=== PATIENT | male | born 1950 | race Caucasian/White ===

== ENCOUNTER 2017-12-12 16:59 | Observation (INO) ==
--- NOTE | 2017-12-12 17:51 | Emergency Department Note ---
Disposition Clinical Impression: Syncope Qualifiers: Syncope type: unspecified Qualified Code(s): R55 - Syncope and collapse Disposition: Admitted As Inpatient Condition: Good Syncope HPI - General Chief Complaint: ED Syncope Stated Complaint: Syncope Time Seen by Provider: 12/12/17 17:21 Source: patient, family Mode of arrival: private vehicle Limitations: no limitations Nursing Notes Reviewed: Yes Vital Signs Reviewed: Yes - History of Present Illness HPI Narrative: 67 yo M c PMHx of HTN, SDH, essential tremor, COPD, DM reports to the ED c/o syncopal event 5 hours ago. Per patient he had a prodrome of palpitations and vision changes(seeing spots), and felt like he was going to pass out. He then came to on the ground. Per him he was fine once he came to. Per his patient did not pass out, patient fell forward onto the car they were looking at with his eyes open the whole time. They lowered him to the ground and he stayed on the ground with mild shaking and his eyes open. insists this was a seizure. She reports he was confused upon coming to and is still not back to baseline per her. He denies loss of bladder control, biting tongue, Headache before or after, numbness or tingling, weakness, Hx of seizure. Patient is being treated for essential tremor by Dr. Patel. He reports he has had episodes for years of palpitations and lightheadedness that preceded his traumatic SDH. He was told by his PCP this was probably just due to too much caffeine. Patient ate breakfast this morning, but hadn't eaten lunch yet when event occurred at 12 :30. They went and got food prior to presenting to ED. Patient not on any blood thinners. Pt Subjective Complaint: loss of consciousness Onset (ago): hour(s) Number of episodes: 1 Duration: minutes(s) (8) Description of Event: post-event confusion Prodromal Symptoms: vision changes, palpitations, heart racing Witnessed: yes - by bystander Context: at rest Injuries Sustained Associated with Event: none Current Symptoms: back to baseline (per patient not by . ) History: none Treatments prior to arrival: none Associated trauma secondary to event: No - Related Data Home Medications Medication Instructions Recorded Confirmed Carbidopa/Levodopa 25/100 [Sinemet 1 each PO TID 12/12/17 12/12/17 25/100] Guanfacine [Tenex] 1 mg PO BID 12/12/17 12/12/17 Lansoprazole [Prevacid] 30 mg PO DAILY 12/12/17 12/12/17 Losartan Potassium [Cozaar] 100 mg PO DAILY 12/12/17 12/12/17 Metformin HCl [Glucophage] 1,000 mg PO BID 12/12/17 12/12/17 Triamterene/HCTZ 75/50mg [Maxzide] 1 tab PO DAILY 12/12/17 12/12/17 Allergies Allergy/AdvReac Type Severity Reaction Status Date / Time Sulfa (Sulfonamide Allergy See Verified 09/02/17 19:50 Antibiotics) Comments Constitutional: Denies: fever, chills Eyes: Reports: vision change. Denies: eye pain ENT ED: Denies: throat pain, congestion Cardiovascular: Reports: palpitations, syncope. Denies: chest pain Respiratory: Denies: cough, dyspnea Gastrointestinal: Denies: abdominal pain, nausea, vomiting, diarrhea Genitourinary: Denies: dysuria, frequency Musculoskeletal: Denies: back pain, neck pain Integumentary: Denies: rash, pruritus Neurological: Denies: headache, weakness, numbness, paresthesias Psychiatric: Denies: anxiety, depression Endocrine: Denies: fatigue, polyuria Hematological/Lymphatic: Denies: easy bleeding, easy bruising Allergic/Immunologic: Denies: facial swelling, itchy eyes Past Medical History - Past Medical History Medical history: Reports: diabetes, hypertension Psychiatric history: Reports: no psych history - Social History Smoking Status: Never smoker Smokeless Tobacco Status: No Alcohol use: Reports: none Physical Exam - General Limitations: no limitations General appearance: alert, in no apparent distress - Head Head exam: atraumatic, normocephalic, other (old SDH evacuation scar) - Eye Eye exam: Present: PERRL, EOMI, other (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 ) - ENT ENT exam: normal oropharynx, mucous membranes moist, other (no signs of biting tongue) - Neck Neck exam: Present: full ROM, trachea midline - Chest Chest inspection: Present: symmetric chest wall rise. Absent: tenderness - Respiratory Respiratory exam: Present: other (poor air movemnt through out. ). Absent: respiratory distress - Cardiovascular Cardiovascular exam: Present: regular rate, normal rhythm, normal heart sounds - Abdominal Exam Abdominal exam: Present: soft, Non-Tender, normal bowel sounds - Extremities Exam Extremities exam: Present: full ROM. Absent: tenderness, pedal edema - Neurological Exam Neurological exam: Present: alert, oriented X3, CN II-XII intact. Absent: motor sensory deficit - Psychiatric Psychiatric exam: Present: normal affect, normal mood - Skin Skin exam: Present: warm, dry Course Course Narrative: Will do Syncope work up EKG, troponin, CBC, BMP, CT head, CXR. - Consultations Consultation #1: Discussed case with Dr. Ramirez admitting hospitalist who agreed to accept the patient for admission. Vital Signs Temperature 98.0 F 12/12/17 17:12 Pulse Rate 81 12/12/17 17:12 Respiratory Rate 16 12/12/17 17:12 Blood Pressure 202/81 12/12/17 17:12 O2 Sat by Pulse Oximetry 96 12/12/17 17:12 Temperature 98.0 F 12/12/17 17:35 Pulse Rate 75 12/12/17 17:35 Respiratory Rate 22 12/12/17 17:35 Blood Pressure 181/94 12/12/17 17:35 O2 Sat by Pulse Oximetry 95 12/12/17 17:35 Oxygen Delivery Oxygen Delivery Room Air Syncope - MDM Narrative Medical decision making narrative: Episode concerning for possible seizure. Will work up for neurologic and cardiac causes of syncope. Normal labs, CT head, CXR. Will need admission for syncope vs Seizure work up. - Lab Data Lab results reviewed: Yes I reviewed the patient's lab results. Result diagrams: 12/12/17 17:53 12/12/17 17:53 Lab Results 12/12/17 12/12/17 Range/Units 17:53 17:53 WBC 7.7 (4.3-11.1) K/mcL RBC 4.08 L (4.19-5.50) M/mcL Hgb 12.6 L (12.9-16.9) g/dL Hct 36.0 L (37.5-50.1) % MCV 88.2 (83.0-100.0) fL MCH 30.9 (28.0-33.3) pg MCHC 35.0 (31.6-35.5) g/dL RDW 12.8 (11.5-14.5) % Plt Count 292 (140-400) K/mcL MPV 9.6 (9.4-12.4) fL Immature Gran % 0.5 (0-4) % Seg Neutrophils % 65.0 % Lymphocytes % 25.2 % Monocytes % 6.9 % Eosinophils % 1.6 % Basophils % 0.8 % Neutrophils # 5.0 (1.6-8.9) K/mcL Lymphocytes # 1.9 (0.6-4.6) K/mcL Monocytes # 0.5 (0.0-1.3) K/mcL Eosinophils # 0.1 (0.0-0.6) K/mcL Basophils # 0.1 (0.0-0.2) K/mcL Sodium 136 (136-145) mEq/L Potassium 3.5 (3.5-5.1) mEq/L Chloride 99 (98-107) mEq/L Carbon Dioxide 28 (23-29) mEq/L BUN 29 H (8-23) mg/dL Creatinine 1.47 H (0.70-1.30) mg/dL Est GFR ( Amer) 58 L (> 60) Est GFR (Non-Af Amer) 48 L (> 60) BUN/Creatinine Ratio 20 (6-26) Glucose 186 H (70-105) mg/dL Calculated Osmolality 293 (280-300) Calcium 9.2 (8.6-10.3) mg/dL Troponin I < 0.03 (< 0.04) ng/mL - Radiology Data Radiology results reviewed: Yes I reviewed the patient's radiology results. - EKG Data EKG attestation: Yes I reviewed and interpreted this EKG. EKG results narrative: EKG 12/12/17, 17:36 Sinus rhythm with sinus arrhythmia, old possible inferior Q waves in II AVF, V6, Rate 75, MS 188, QRS 127, QT/QTc 396/425, NO ST segment changes. No change from prior EKG of 01/19/15.
[2017-12-12 18:03] LABS: Basophils # 0.1 K/mcL (0.0-0.2); Basophils % 0.8 %; Eosinophils # 0.1 K/mcL (0.0-0.6); Eosinophils % 1.6 %; Hemoglobin 12.6 g/dL (12.9-16.9); Immature Granulocytes % 0.5 % (0-4); Lymphocytes # 1.9 K/mcL (0.6-4.6); Lymphocytes % 25.2 %; Mean Corpuscular Hemoglobin 30.9 pg (28.0-33.3); Mean Corpuscular Volume 88.2 fL (83.0-100.0); Mean Platelet Volume 9.6 fL (9.4-12.4); Monocytes # 0.5 K/mcL (0.0-1.3); Monocytes % 6.9 %; Platelet Count 292 K/mcL (140-400); Red Blood Count 4.08 M/mcL (4.19-5.50); Red Cell Distribution Width 12.8 % (11.5-14.5)
[2017-12-12 18:25] LABS: BUN/Creatinine Ratio 20 (6-26); Blood Urea Nitrogen 29 mg/dL (8-23); Calcium 9.2 mg/dL (8.6-10.3); Carbon Dioxide 28 mEq/L (23-29); Chloride 99 mEq/L (98-107); Glucose 186 mg/dL (70-105); Osmolality,Calculated 293 (280-300); Potassium 3.5 mEq/L (3.5-5.1); Sodium 136 mEq/L (136-145); Troponin I < 0.03 ng/mL (< 0.04); eGFR For African Americans 58 (> 60); eGFR For Non-African Americans 48 (> 60)
--- NOTE | 2017-12-12 20:49 | Emergency Department Note ---
Disposition Clinical Impression: Syncope Qualifiers: Syncope type: unspecified Qualified Code(s): R55 - Syncope and collapse Disposition: Admitted As Inpatient Condition: Good Referrals: Moses Correia DO [Primary Care Provider] - Dizziness HPI - General Chief Complaint: ED Syncope Stated Complaint: Syncope Time Seen by Provider: 12/12/17 17:21 Source: patient, family Mode of arrival: private vehicle Limitations: no limitations Nursing Notes Reviewed: Yes Vital Signs Reviewed: Yes - Related Data Home Medications Medication Instructions Recorded Confirmed Carbidopa/Levodopa 25/100 [Sinemet 1 each PO TID 12/12/17 12/12/17 25/100] Guanfacine [Tenex] 1 mg PO BID 12/12/17 12/12/17 Lansoprazole [Prevacid] 30 mg PO DAILY 12/12/17 12/12/17 Losartan Potassium [Cozaar] 100 mg PO DAILY 12/12/17 12/12/17 Metformin HCl [Glucophage] 1,000 mg PO BID 12/12/17 12/12/17 Triamterene/HCTZ 75/50mg [Maxzide] 1 tab PO DAILY 12/12/17 12/12/17 Allergies Allergy/AdvReac Type Severity Reaction Status Date / Time Sulfa (Sulfonamide Allergy See Verified 09/02/17 19:50 Antibiotics) Comments Constitutional: Denies: fever, chills Eyes: Reports: vision change. Denies: eye pain ENT ED: Denies: throat pain, congestion Cardiovascular: Reports: palpitations, syncope. Denies: chest pain Respiratory: Denies: cough, dyspnea Gastrointestinal: Denies: abdominal pain, nausea, vomiting, diarrhea Genitourinary: Denies: dysuria, frequency Musculoskeletal: Denies: back pain, neck pain Integumentary: Denies: rash, pruritus Neurological: Denies: headache, weakness, numbness, paresthesias Psychiatric: Denies: anxiety, depression Endocrine: Denies: fatigue, polyuria Hematological/Lymphatic: Denies: easy bleeding, easy bruising Allergic/Immunologic: Denies: facial swelling, itchy eyes Past Medical History - Past Medical History Medical history: Reports: diabetes, hypertension Psychiatric history: Reports: no psych history - Social History Smoking Status: Never smoker Smokeless Tobacco Status: No Alcohol use: Reports: none Drug use: Reports: none Physical Exam - General Limitations: no limitations General appearance: alert, in no apparent distress Course Vital Signs Temperature 98.0 F 12/12/17 17:12 Pulse Rate 81 12/12/17 17:12 Respiratory Rate 16 12/12/17 17:12 Blood Pressure 202/81 12/12/17 17:12 O2 Sat by Pulse Oximetry 96 12/12/17 17:12 Temperature 98.0 F 12/12/17 17:35 Pulse Rate 75 12/12/17 17:35 Respiratory Rate 22 12/12/17 17:35 Blood Pressure 181/94 12/12/17 17:35 O2 Sat by Pulse Oximetry 95 12/12/17 17:35 Oxygen Delivery Oxygen Delivery Room Air Dizziness - Lab Data Result diagrams: 12/12/17 17:53 12/12/17 17:53 Lab Results 12/12/17 12/12/17 Range/Units 17:53 17:53 WBC 7.7 (4.3-11.1) K/mcL RBC 4.08 L (4.19-5.50) M/mcL Hgb 12.6 L (12.9-16.9) g/dL Hct 36.0 L (37.5-50.1) % MCV 88.2 (83.0-100.0) fL MCH 30.9 (28.0-33.3) pg MCHC 35.0 (31.6-35.5) g/dL RDW 12.8 (11.5-14.5) % Plt Count 292 (140-400) K/mcL MPV 9.6 (9.4-12.4) fL Immature Gran % 0.5 (0-4) % Seg Neutrophils % 65.0 % Lymphocytes % 25.2 % Monocytes % 6.9 % Eosinophils % 1.6 % Basophils % 0.8 % Neutrophils # 5.0 (1.6-8.9) K/mcL Lymphocytes # 1.9 (0.6-4.6) K/mcL Monocytes # 0.5 (0.0-1.3) K/mcL Eosinophils # 0.1 (0.0-0.6) K/mcL Basophils # 0.1 (0.0-0.2) K/mcL Sodium 136 (136-145) mEq/L Potassium 3.5 (3.5-5.1) mEq/L Chloride 99 (98-107) mEq/L Carbon Dioxide 28 (23-29) mEq/L BUN 29 H (8-23) mg/dL Creatinine 1.47 H (0.70-1.30) mg/dL Est GFR ( Amer) 58 L (> 60) Est GFR (Non-Af Amer) 48 L (> 60) BUN/Creatinine Ratio 20 (6-26) Glucose 186 H (70-105) mg/dL Calculated Osmolality 293 (280-300) Calcium 9.2 (8.6-10.3) mg/dL Troponin I < 0.03 (< 0.04) ng/mL Attestation Statement - Attestation Attestation: I, Warren Gerber, examined this patient and my medical decision-making was reviewed with the FL[employer]ICATIONS OFFICER/PA/Advanced Practice Nurse/Resident Physician. I agree with the documented findings, disposition and treatment plan as described except to the extent set forth below. 67-year-old male presents emergency Department with concerns of syncopal event versus seizure. Patient states he was walking out to a car when he suddenly lost consciousness. states that he stopped talking was about to fall forward, she caught him and so he did not hit his head. states he never close his eyes during this encounter although he was unable to respond. states it took about 8 minutes for him to return to normal. states that after the initial period of unresponsiveness, he became very agitated. No history of seizures in the past. No history of previous syncope. Patient has a history of tremors which are being followed by Dr. Patel and was recently started on Sinemet within the past 1-2 months. Last change in dosing was 3 weeks ago. Patient states he felt the symptoms approaching with palpitations and lightheadedness although he denies chest pain or shortness of breath. No history of previous PE. Patient denies recent fever, chills, nausea, vomiting, diarrhea, bowel movement before the event or other stressors. EKG did not show evidence of dysrhythmia or STEMI. Initial troponin negative. Patient feels comfortable with plan for admission to the hospital for further care and evaluation.
--- NOTE | 2017-12-12 21:46 | Internal Med History&Physical ---
Date of Encounter: 12/12/17 Time of Encounter: 21:00 Internal Medicine - H&P: HPI Chief complaint: Possible seizure Admitted From: Emergency Dept Plans for Post Hospital Care: Home History of present illness: Mr. Su is a 67 year old male patient with a history of prior subdural hematoma status post evacuation 3 years back and chronic tremor in right upper extremity, hypertension, diabetes presented to the ER after an episode of possible seizure at home. According to his who witnessed the episode, patient was standing up and suddenly fell forwards with his eyes open. He did not seem to lose consciousness. He did not have any tonic-clonic movements or bowel or bladder incontinence. No tongue biting. However he was not responding to her questions. This episode lasted for about 8 minutes and patient is then began to move but remained confused for the next hour. He has never had seizures before. He did not hit his head. He now states that he felt it coming on just prior to his episode with blurring vision and dark spots in his visual amaya along with dizziness. Denies any palpitations. Only recent medication change has been an increase in his metformin dosage. He does not usually check his blood sugars. No fever or chills. He does have cough. No chest pain or palpitations. He now feels that he is back to his baseline. No focal weakness or numbness. Past Med Surg Social Fam HX - Past Medical History Medical history: diabetes, hypertension Additional medical history: subdermal hematoma Psychiatric history: no psych history - Past Surgical History Additional surgical history: brain surgery 2014 - Social History Smoking Status: Never smoker Smokeless Tobacco Status: No Alcohol use: none Drug use: none - Additional Family History Additional family history: Reviewed and found to be noncontributory at this time Internal Medicine - H&P: Meds Carbidopa/Levodopa 25/100 [Sinemet 25/100] 1 each PO TID 12/12/17 [History] Guanfacine [Tenex] 1 mg PO BID 12/12/17 [History] Lansoprazole [Prevacid] 30 mg PO DAILY 12/12/17 [History] Losartan Potassium [Cozaar] 100 mg PO DAILY 12/12/17 [History] Metformin HCl [Glucophage] 1,000 mg PO BID 12/12/17 [History] Triamterene/HCTZ 75/50mg [Maxzide] 1 tab PO DAILY 12/12/17 [History] 3 Allergy/AdvReac Type Severity Reaction Status Date / Time Sulfa (Sulfonamide Allergy See Verified 09/02/17 19:50 Antibiotics) Comments All Systems PM: A 10-system review of systems was performed and is negative for pertinent findings except as documented above in the HPI. - Constitutional Constitutional: no chills, no fever(s), no night sweats - EENT Eyes: spots in vision, no change in vision, no discharge, no pain, no photophobia Ears: no ear discharge, no ear pain, no tinnitus Nose, mouth and throat: no dysphagia, no nasal discharge, no neck pain, no sore throat - Cardiovascular Cardiovascular ROS IM: lightheadedness, no chest pain, no diaphoresis, no dyspnea, no palpitations, no syncope - Respiratory Respiratory: no cough, no dyspnea, no wheezing, no excessive phlegm production - Gastrointestinal Gastrointestinal: no abdominal pain, no diarrhea, no hematemesis, no hematochezia, no melena, no nausea, no vomiting - Musculoskeletal Musculoskeletal ROS IM: no numbness, no tingling - Integumentary Integumentary IM: no rash, no unusual bruising - Neurological Neurological ROS: dizziness, weakness, no confusion, no convulsions, no focal weakness, no numbness, no tingling, no tremor(s) - Hematologic/Lymphatic Hematologic/Lymphatic: no easy bruising - Constitutional Vitals: Temp Pulse Resp BP Pulse Ox 98.0 F 73 22 149/87 95 12/12/17 17:35 12/12/17 21:22 12/12/17 17:35 12/12/17 21:22 12/12/17 17:35 General appearance: Present: A&O X 3, pleasant, answers questions appropriately - Eye Eye exam: Present: EOMI, conjuntiva pink, sclera anicteric - Neck Neck exam general surgery: Present: supple, trachea midline. Absent: lymphadenopathy - Respiratory Respiratory exam: Present: CTAB. Absent: accessory muscle use, rales, rhonchi, wheezes - Cardiovascular Cardiovascular exam: Present: RRR, +S1, +S2. Absent: diastolic murmur, gallop, rubs, systolic murmur - Extremities Exam Extremities exam: Present: warm, radial pulses palpable and symmetrical. Absent : calf tenderness, cyanotic, pedal edema Additional comments: Resting tremor in right upper extremity - Neurological Exam Neurological exam: Present: alert, CN II-XII intact, oriented X3, no focal deficits. Absent: pronater drift, facial droop, speech deficit - Skin Skin exam: Present: dry, intact Internal Med - H&P Results - Labs CBC & Chem 7: 12/12/17 17:53 12/12/17 17:53 - Assessment and plan (1) Postural dizziness with presyncope Current Visit: Yes Status: Acute Assessment and plan: Patient presented falling episode of dizziness and presyncope. No loss of consciousness but did not respond for at least 8 minutes. Seizure is a possibility but he did not have any tonic-clonic activity and no prior history of seizures. We will check orthostatic blood pressures, get MRI of the brain and EEG. Fall precautions. Monitor with telemetry. (2) Essential hypertension Current Visit: Yes Status: Chronic Assessment and plan: Blood pressure is currently elevated. We will monitor and treat accordingly. Hold Maxzide due to acute kidney injury. (3) Diabetes mellitus, type 2 Current Visit: Yes Status: Chronic Assessment and plan: Patient takes metformin at home. We will place him on insulin sliding scale year. Diabetic diet. Qualifiers: Diabetes mellitus senior care insulin use: without long term care pharmacist use Diabetes mellitus complication status: without complication Qualified Code(s): E11.9 - Type 2 diabetes mellitus without complications (4) Acute kidney injury Current Visit: Yes Status: Acute Assessment and plan: Patient has elevated BUN and creatinine. Could be related to dehydration. We will gently hydrate and follow renal function closely. Hold Maxzide and Cozaar for now. (5) DVT prophylaxis Current Visit: Yes Status: Acute Assessment and plan: With subcutaneous heparin - Time Spent With Patient Total time spent is greater than 50% in coordination of care (as documented) at patient's floor/unit and/or counseling patient:
[2017-12-12] MEDS ORDERED: Naloxone 0.4 MG/ML INJ IVP PRN (21:59)
[2017-12-12] MEDS ORDERED: D5% in Water 1,000 ML IVC PRN (22:00)
[2017-12-12] MEDS ORDERED: *HR* Dextrose 50 % in Water (Syg) 50 ML SYRINGE IVP PRN (22:00)
[2017-12-12] MEDS ORDERED: Dextrose Gel 15 GM/37.5 ML TUBE PO PRN ×2 (22:00)
[2017-12-12] MEDS ORDERED: Ringers Solution, Lactated 1,000 ML IVC SCH (22:15)
[2017-12-13] MEDS ORDERED: *HR* Heparin 5,000 UNIT/ML VIAL SQ SCH (06:00)
[2017-12-13 06:54] LABS: Basophils # 0.1 K/mcL (0.0-0.2); Basophils % 0.9 %; Eosinophils # 0.1 K/mcL (0.0-0.6); Hemoglobin 12.4 g/dL (12.9-16.9); Immature Granulocytes % 0.3 % (0-4); Lymphocytes # 1.7 K/mcL (0.6-4.6); Lymphocytes % 25.1 %; Mean Corpuscular HGB Conc 35.4 g/dL (31.6-35.5); Mean Corpuscular Hemoglobin 31.1 pg (28.0-33.3); Mean Corpuscular Volume 87.7 fL (83.0-100.0); Monocytes # 0.6 K/mcL (0.0-1.3); Monocytes % 8.5 %; Neutrophils # 4.2 K/mcL (1.6-8.9); Platelet Count 272 K/mcL (140-400); Red Blood Count 3.99 M/mcL (4.19-5.50); Red Cell Distribution Width 12.7 % (11.5-14.5); Segmented Neutrophils % 63.2 %
[2017-12-13 07:17] LABS: BUN/Creatinine Ratio 23 (6-26); Blood Urea Nitrogen 29 mg/dL (8-23); Calcium 9.1 mg/dL (8.6-10.3); Carbon Dioxide 28 mEq/L (23-29); Chloride 101 mEq/L (98-107); Glucose 207 mg/dL (70-105); Osmolality,Calculated 298 (280-300); Potassium 3.2 mEq/L (3.5-5.1); Sodium 138 mEq/L (136-145); eGFR For African Americans > 60 (> 60); eGFR For Non-African Americans 59 (> 60)
[2017-12-13] MEDS: Insulin LISPRO 300 UNITS/3 ML VIAL SQ SCH ×2 (08:44→12:24)
[2017-12-13] MEDS: Carbidopa/Levodopa 25/100 TABLET PO SCH ×2 (08:44→14:30)
--- NOTE | 2017-12-13 13:31 | Neurology - Consult Note ---
Date of Encounter: 12/13/17 Time of Encounter: 13:29 Assessment and Plan (1) Syncope Current Visit: Yes Status: Acute I believe that more than likely this patient has experienced vasovagal syncope. Generally with vasovagal syncope there is a brief prodrome prior to losing consciousness or altered consciousness. He stated that he felt strange and was coming on. He felt flushed. He was unconscious only briefly. There is a question actually as to whether not he was unconscious at all. He denies any anxiety associated. He did not experience any convulsive activity did not lose bladder or bowel continence over likely not dealing with seizure. Orthostatic blood pressure readings were negative. At this juncture I feel that the EEG study can be canceled. I am doubtful of cardiogenic syncope again because the prodrome that he experienced was consistent with a vasovagal event. MRI scan of the brain does not reveal any evidence of any acute event. It does show evidence of the previous craniotomy for the subdural hematoma, and it also shows some evidence of cortical atrophy with compensatory ventricular dilatation. Carotid Doppler study does reveal mild to moderate stenosis of the right internal carotid artery, however this event was not consistent with a TIA. From a neurologic perspective he is stable. I will reevaluate him at your request. Qualifiers: Syncope type: vasovagal syncope Qualified Code(s): R55 - Syncope and collapse History of Present Illness HPI: Mr. Su is a 67 year old male who was known to me due to a history of tremor and is now seen for neurologic consultation as an inpatient due to an acute episode of altered consciousness. He stated at that time was about 2:00 to 2: 30 in the afternoon. He and his granddaughter were car dealership looking for her car. He states that he stood up in one to look into the car and he felt lightheaded. He states that he "felt it coming on". Apparently he felt faint. He denied feeling nauseated. Denied any chest pain. He has experienced episodes of this nature previously. Apparently he went down to the ground with the assistance of others would have been witnessing this event. He did not fall abruptly he did not injure himself. There was no generalized tonic-clonic activity. He did not lose bladder or bowel continence. Apparently he was confused for about 8 minutes or so. Currently he is back to his normal baseline. Seen in the office for tremors. He has a resting as well as intention tremor of the right upper extremity. He has been tried on and failed primidone and Topamax. More recently he has been taking Sinemet 25/100 twice a day and he feels that it is helping. Past Med Surg Social Fam HX - Past Medical History Medical history: diabetes, hypertension Additional medical history: subdermal hematoma Psychiatric history: no psych history - Past Surgical History Additional surgical history: brain surgery 2015 - Social History Smoking Status: Never smoker Smokeless Tobacco Status: No Alcohol use: none Drug use: none Medications and Allergies Carbidopa/Levodopa 25/100 [Sinemet 25/100] 1 each PO TID 12/12/17 [History] Guanfacine [Tenex] 1 mg PO BID 12/12/17 [History] Lansoprazole [Prevacid] 30 mg PO DAILY 12/12/17 [History] Losartan Potassium [Cozaar] 100 mg PO DAILY 12/12/17 [History] Metformin HCl [Glucophage] 1,000 mg PO BID 12/12/17 [History] Triamterene/HCTZ 75/50mg [Maxzide] 1 tab PO DAILY 12/12/17 [History] 3 Allergy/AdvReac Type Severity Reaction Status Date / Time Sulfa (Sulfonamide Allergy See Verified 09/02/17 19:50 Antibiotics) Comments All Systems: The remainder of the systems were reviewed and are negative Review of Systems: The balance of the systems review is negative. Physical Examination - Vital Signs Vital Signs: Initial Vital Signs Temp Pulse Resp BP Pulse Ox 98.0 F 81 16 202/81 96 12/12/17 17:12 12/12/17 17:12 12/12/17 17:12 12/12/17 17:12 12/12/17 17:12 - Neurologic Sensorimotor examination: intact Detailed motor examination: grossly full strength in all extremities, other (He does have a resting tremor of the right upper extremity. He has intention tremor of both upper extremities upon finger-nose testing. He does have Dupuytren's contractures bilaterally.) Detailed sensory examination: intact Reflex and gait examination: intact Mental Status Examination: awake, alert, oriented to person, oriented to place, oriented to time, follows commands appropriately, answers questions appropriately, no agnosia, no aphasia, no aproxia Cranial nerve examination: PERRL, EOMI (Dysconjugate gaze is present.), visual amaya intact, corneal reflexes brisk symmetrically, sensory to face intact, mastication intact, no facial asymmetry is present, no dysarthria, hearing is intact symmetrically, soft palate elevates bilaterally upon phonation, gag reflex intact, flexes SCM and trapezius muscles symmetrically with full power, tongue protrudes midline, no atrophy or facial fasiculations present Cerebellar examination: no dysmetria, performs finger to nose and heel to mcghee symmetrically without ataxia (Intention tremor is present however bilaterally.) Results - Laboratory Findings CBC and BMP: 12/13/17 05:47 12/13/17 05:47 Abnormal lab findings: Abnormal lab results RBC 3.99 M/mcL (4.19-5.50) L 12/13/17 05:47 Hgb 12.4 g/dL (12.9-16.9) L 12/13/17 05:47 Hct 35.0 % (37.5-50.1) L 12/13/17 05:47 Potassium 3.2 mEq/L (3.5-5.1) L 12/13/17 05:47 BUN 29 mg/dL (8-23) H 12/13/17 05:47 Est GFR (Non-Af Amer) 59 (> 60) L 12/13/17 05:47 Glucose 207 mg/dL (70-105) H 12/13/17 05:47 POC Glucose 182 mg/dL (70-99) H 12/12/17 23:04 Consult Discharge Plan - Plan Referrals: Moses Correia DO [Primary Care Provider] -
[2017-12-13] MEDS ORDERED: Ibuprofen 600 MG TABLET PO PRN (14:42)
--- NOTE | 2017-12-13 16:14 | Discharge Summary ---
- NOTES TO OUTPATIENT PROVIDER Notes to Outpatient Provider: Mr. Su, was admitted to the hospital due to a near syncopal versus possible syncopal event. The patient reports he was standing and talking to his friend and began to feel weak, and a flush and overall strange. He reports his eyes were open the entire time and is not clear whether or not he was unconscious at all. Orthostatic blood pressures negative, MRI and CT of head negative. Total for that this was cardiogenic shock as prodrome is consistent with vasovagal event. He was instructed to follow-up with PCP within 1 week of discharge. The patient may benefit from outpatient tilt table testing and/or loop recorder Orders not resulted at time of discharge: Pending orders 12/14/17 04:00 Basic Metabolic Panel AM 0400 Complete Blood Count [HEME] AM 0400 12/15/17 04:00 Basic Metabolic Panel AM 0400 Complete Blood Count [HEME] AM 0400 12/16/17 04:00 Basic Metabolic Panel AM 0400 Complete Blood Count [HEME] AM 0400 12/17/17 04:00 Basic Metabolic Panel AM 0400 Complete Blood Count [HEME] AM 0400 12/18/17 04:00 Basic Metabolic Panel AM 0400 Complete Blood Count [HEME] AM 0400 Date of Encounter: 12/13/17 Time of Encounter: 16:11 - Discharge Diagnosis (1) Postural dizziness with presyncope Priority: Primary Status: Acute Assessment and Plan: Patient presented falling episode of dizziness and presyncope. Unclear as to whether or not he had a true loss of consciousness. Had a prodrome of symptoms consistent with vasovagal event. CT head, MRI head negative for acute intracranial abnormality. It does however show history of previous craniotomy for subdural hematoma, evidence of cortical atrophy with compensatory ventricular dilatation. Doppler study completed revealing mild to moderate stenosis of the right ICA. TTE unremarkable. Neurology consulted and does not feel this was CVA/TIA or seizure. No need for EEG at this time. Has not had recurrence of symptoms since admission. Improved with IV hydration. May have been dehydrated. Patient has been instructed to wear compression stockings at all times, consume adequate oral intake, and a follow-up with PCP within 1 week of discharge. Additionally, he may benefit from outpatient tilt table testing. He is instructed to return to the ED showed near syncopal symptoms return. (2) Essential hypertension Priority: Secondary Status: Chronic Assessment and Plan: Pressure mildly elevated, but patient has not been receiving diuretic due to acute kidney injury and concerns for dehydration leading to near syncopal event. Resume home anti-HTN medications at discharge (3) Diabetes mellitus, type 2 Priority: Secondary Status: Chronic Assessment and Plan: Resume home oral hypoglycemic agents Qualifiers: Diabetes mellitus termite control service representative insulin use: without correction use Diabetes mellitus complication status: without complication Qualified Code(s): E11.9 - Type 2 diabetes mellitus without complications (4) Acute kidney injury Priority: Secondary Status: Acute Assessment and Plan: BUN and creatinine improved with hydration No prior history of renal failure (5) DVT prophylaxis Priority: Secondary Status: Acute Hospital course: Mr. Su is a 67 year old male See assessment and plan for hospital course Discharge discussed with: patient, family, nurse, revenue cycle consultant - Time Spent with Patient Total time spent providing and/or coordinating discharge services: Less than 30 minutes - Discharge Medications Home Medications: Carbidopa/Levodopa 25/100 [Sinemet 25/100] 1 each PO TID 12/12/17 [History] Guanfacine [Tenex] 1 mg PO BID 12/12/17 [History] Lansoprazole [Prevacid] 30 mg PO DAILY 12/12/17 [History] Losartan Potassium [Cozaar] 100 mg PO DAILY 12/12/17 [History] Metformin HCl [Glucophage] 1,000 mg PO BID 12/12/17 [History] Triamterene/HCTZ 75/50mg [Maxzide] 1 tab PO DAILY 12/12/17 [History] Allergies/Adverse Reactions: 3 Allergy/AdvReac Type Severity Reaction Status Date / Time Sulfa (Sulfonamide Allergy See Verified 09/02/17 19:50 Antibiotics) Comments Date of admission: 12/12/17 20:21 Primary care physician: Moses Correia Discharging clinician: Lenard Diego Anticipated date of discharge: 12/13/17 - Constitutional Vitals: Temp Pulse Resp BP Pulse Ox 98.0 F 66 18 162/87 96 12/13/17 12:18 12/13/17 12:18 12/13/17 12:18 12/13/17 12:18 12/13/17 12:18 General appearance: Present: A&O X 3, pleasant, answers questions appropriately - Head Head exam: Present: atraumatic, normocephalic - Eye Eye exam: Present: PERRL, conjuntiva pink, sclera anicteric Pupils: Present: PERRL - Neck Neck exam general surgery: Present: supple, trachea midline. Absent: lymphadenopathy - Respiratory Respiratory exam: Present: CTAB. Absent: accessory muscle use, rales, rhonchi, wheezes - Cardiovascular Cardiovascular exam: Present: RRR, +S1, +S2. Absent: diastolic murmur, gallop, rubs, systolic murmur - GI/Abdominal GI/Abdominal exam: Present: normal bowel sounds, soft, no peritoneal signs. Absent: distended, tenderness - Extremities Exam Extremities exam: Present: warm, radial pulses palpable and symmetrical. Absent : calf tenderness, cyanotic, pedal edema - Neurological Exam Neurological exam: Present: CN II-XII intact, oriented X3, no focal deficits. Absent: pronater drift, facial droop, speech deficit - Skin Skin exam: Present: dry, intact - Patient Status Disposition: Home, Self-Care Condition: Good - Discharge Instructions Follow Up With: Moses Correia DO [Primary Care Provider] - - Diet and Activity Activity: increase activity as tolerated Diet: advance to your usual diet
[2017-12-13 16:28] VITALS: BP 159/85
[2017-12-13] MEDS ORDERED: Insulin LISPRO 300 UNITS/3 ML VIAL SQ SCH (21:00)
--- NOTE | 2017-12-15 16:35 | Electrocardiograph Report ---
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
== END 2017-12-13 16:52 | disposition home or self-care (01) ==
LOC: 3BNU 16:59 → EMEROO 16:59 → 3BNU 21:24
PROVIDERS: ADMIT Internal Medicine; ATTEND Internal Medicine

== ENCOUNTER 2019-10-11 21:03 | Observation (INO) ==
[2019-10-11 21:34] LABS: Bilirubin,Urine Negative (Negative); Blood,Urine Negative (Negative); Clarity,Urine Clear (Clear); Color,Urine Yellow (Yellow); Glucose,Urine (UA) Normal (Normal); Ketones,Urine Negative (Negative); Leukocyte Esterase,Urine Negative (Negative); Nitrite,Urine Negative (Negative); PH,Urine 7.5 pH Units (5.0-8.0); Protein,Urine 100 mg/dL (Neg-Trace); Specific Gravity,Urine 1.016 (1.010-1.025); Urobilinogen,Urine Normal (Normal)
[2019-10-11 21:35] LABS: Basophils # 0.1 K/mcL (0.0-0.2); Basophils % 0.9 %; Eosinophils # 0.2 K/mcL (0.0-0.6); Eosinophils % 2.2 %; Hematocrit 41.9 % (37.5-50.1); Hemoglobin 14.3 g/dL (12.9-16.9); Immature Granulocytes % 0.3 % (0-4); Lymphocytes # 2.6 K/mcL (0.6-4.6); Lymphocytes % 28.8 %; Mean Corpuscular HGB Conc 34.1 g/dL (31.6-35.5); Mean Platelet Volume 9.1 fL (9.4-12.4); Monocytes # 0.7 K/mcL (0.0-1.3); Monocytes % 7.8 %; Neutrophils # 5.5 K/mcL (1.6-8.9); Platelet Count 338 K/mcL (140-400); Red Blood Count 4.76 M/mcL (4.19-5.50); Red Cell Distribution Width 13.1 % (11.5-14.5); White Blood Count 9.1 K/mcL (4.3-11.1)
[2019-10-11 21:36] LABS: Bacteria,Urine None Seen per hpf (None-Few); Hyaline Casts,Urine None Seen per lpf (None-Few); RBC,Urine 0-3 per hpf (0-3); Squamous Epithelial Cell,Urine Few per lpf (None-Few); WBC,Urine 0-3 per hpf (0-3)
[2019-10-11 21:56] LABS: Alanine Aminotransferase 8 Units/L (7-52); Albumin 4.1 g/dL (3.5-5.7); Albumin/Globulin Ratio 1.5 (1.1-2.2); Alkaline Phosphatase 108 Units/L (34-104); Aspartate Amino Transferase 12 Units/L (13-39); BUN/Creatinine Ratio 21 (6-26); Bilirubin,Total 0.3 mg/dL (0.3-1.0); Blood Urea Nitrogen 19 mg/dL (8-23); Calcium 9.2 mg/dL (8.6-10.3); Carbon Dioxide 28 mEq/L (23-29); Chloride 101 mEq/L (98-107); Globulin 2.8 g/dL (2.4-3.5); Glucose 134 mg/dL (70-105); Osmolality,Calculated 294 (280-300); Potassium 3.1 mEq/L (3.5-5.1); Sodium 140 mEq/L (136-145); Total Protein 6.9 g/dL (6.4-8.9); eGFR For African Americans > 60 (> 60); eGFR For Non-African Americans > 60 (> 60)
[2019-10-11 21:57] LABS: Troponin I < 0.03 ng/mL (< 0.04)
[2019-10-11 21:58] LABS: Activated Partial Thrombo Time 36.8 Seconds (26.0-36.0); Prothrombin Time 10.9 Seconds (9.4-12.1)
[2019-10-11] MEDS: Isovue-370 500 ML BOTTLE IVP ONE (22:34)
[2019-10-11] MEDS ORDERED: diazePAM 5 MG TABLET PO ONE (22:42)
[2019-10-12] MEDS ORDERED: Naloxone 0.4 MG/ML INJ IVP PRN (01:11)
[2019-10-12] MEDS ORDERED: Ondansetron 4 MG/2 ML VIAL IVP PRN (01:11)
[2019-10-12] MEDS ORDERED: D5% in Water 1,000 ML IVC PRN (01:25)
[2019-10-12] MEDS ORDERED: *HR* Dextrose 50 % in Water (Syg) 50 ML SYRINGE IVP PRN (01:25)
[2019-10-12] MEDS ORDERED: Dextrose Gel 15 GM/37.5 ML TUBE PO PRN ×2 (01:25)
[2019-10-12] MEDS: carvediloL 25 MG TABLET PO SCH ×3 (01:26→17:41)
[2019-10-12] MEDS: Insulin LISPRO 300 UNITS/3 ML VIAL SQ SCH ×5 (01:28→20:38)
[2019-10-12] MEDS ORDERED: carvediloL 25 MG TABLET PO SCH (01:30)
[2019-10-12] MEDS ORDERED: Insulin LISPRO 300 UNITS/3 ML VIAL SQ SCH (01:30)
[2019-10-12] MEDS ORDERED: polyethylene glycoL 3350 17 GM POWD.PACK PO PRN (01:37)
[2019-10-12 02:28] LABS: Prothrombin Time 11.5 Seconds (9.4-12.1)
[2019-10-12 02:44] LABS: BUN/Creatinine Ratio 19 (6-26); Blood Urea Nitrogen 16 mg/dL (8-23); Calcium 8.8 mg/dL (8.6-10.3); Carbon Dioxide 28 mEq/L (23-29); Chloride 101 mEq/L (98-107); Glucose 124 mg/dL (70-105); Magnesium 1.6 mg/dL (1.6-2.6); Osmolality,Calculated 289 (280-300); Potassium 3.5 mEq/L (3.5-5.1); Sodium 138 mEq/L (136-145); eGFR For African Americans > 60 (> 60); eGFR For Non-African Americans > 60 (> 60)
[2019-10-12 02:50] LABS: Basophils # 0.1 K/mcL (0.0-0.2); Eosinophils # 0.1 K/mcL (0.0-0.6); Eosinophils % 1.5 %; Hematocrit 41.1 % (37.5-50.1); Hemoglobin 13.6 g/dL (12.9-16.9); Immature Granulocytes % 0.4 % (0-4); Lymphocytes % 26.3 %; Mean Corpuscular HGB Conc 33.1 g/dL (31.6-35.5); Mean Corpuscular Hemoglobin 29.2 pg (28.0-33.3); Mean Corpuscular Volume 88.2 fL (83.0-100.0); Mean Platelet Volume 10.5 fL (9.4-12.4); Monocytes # 0.6 K/mcL (0.0-1.3); Monocytes % 6.3 %; Platelet Count 228 K/mcL (140-400); Red Blood Count 4.66 M/mcL (4.19-5.50); Red Cell Distribution Width 13.2 % (11.5-14.5); Segmented Neutrophils % 64.5 %; White Blood Count 8.9 K/mcL (4.3-11.1)
[2019-10-12 02:51] LABS: Lymphocytes # 2.3 K/mcL (0.6-4.6); Neutrophils # 5.7 K/mcL (1.6-8.9)
[2019-10-12 02:54] LABS: Platelet Estimate Normal (Normal)
[2019-10-12] MEDS: *HR* Heparin 5,000 UNIT/ML VIAL SQ SCH ×3 (05:27→21:03)
[2019-10-12] MEDS: DilTIAZem CD (24hr) 240 MG CAP.ER.24H PO SCH (09:22)
[2019-10-12] MEDS: hydroCHLOROthiazide 25 MG TABLET PO SCH (09:22)
[2019-10-12] MEDS: Aspirin Enteric Coated 81 MG Tablet PO SCH (09:22)
[2019-10-12] MEDS: Acetaminophen 325 MG TABLET PO PRN (15:15)
[2019-10-13 05:18] LABS: Hematocrit 42.6 % (37.5-50.1); Hemoglobin 14.6 g/dL (12.9-16.9); Mean Corpuscular HGB Conc 34.3 g/dL (31.6-35.5); Mean Corpuscular Volume 84.7 fL (83.0-100.0); Mean Platelet Volume 9.4 fL (9.4-12.4); Platelet Count 342 K/mcL (140-400); Red Blood Count 5.03 M/mcL (4.19-5.50); White Blood Count 9.7 K/mcL (4.3-11.1)
[2019-10-13 05:45] LABS: BUN/Creatinine Ratio 18 (6-26); Blood Urea Nitrogen 17 mg/dL (8-23); Calcium 9.4 mg/dL (8.6-10.3); Carbon Dioxide 26 mEq/L (23-29); Chloride 101 mEq/L (98-107); Glucose 144 mg/dL (70-105); Osmolality,Calculated 290 (280-300); Potassium 3.2 mEq/L (3.5-5.1); Sodium 138 mEq/L (136-145); eGFR For African Americans > 60 (> 60); eGFR For Non-African Americans > 60 (> 60)
[2019-10-13] MEDS: *HR* Heparin 5,000 UNIT/ML VIAL SQ SCH (06:33)
[2019-10-13 07:04] VITALS: BP 186/96
[2019-10-13] MEDS: Insulin LISPRO 300 UNITS/3 ML VIAL SQ SCH (08:14)
[2019-10-13] MEDS: carvediloL 25 MG TABLET PO SCH (08:18)
[2019-10-13] MEDS: DilTIAZem CD (24hr) 240 MG CAP.ER.24H PO SCH (08:18)
[2019-10-13] MEDS: hydroCHLOROthiazide 25 MG TABLET PO SCH (08:18)
[2019-10-13] MEDS: Aspirin Enteric Coated 81 MG Tablet PO SCH (08:19)
[2019-10-13] MEDS: Acetaminophen 325 MG TABLET PO PRN (08:33)
[2019-10-13] MEDS ORDERED: Isosorbide MONOnitrate (24 HR) 60 MG TAB.ER.24H PO SCH (09:00)
== END 2019-10-13 11:30 | disposition home or self-care (01) ==
LOC: 3BNU 21:03 → EMEROOARM 21:03 → 3BNU 10-12 00:18
PROVIDERS: ADMIT Internal Medicine; ATTEND Internal Medicine

== ENCOUNTER 2021-10-09 20:43 | Inpatient (IN) ==
[2021-10-09 21:38] LABS: Basophils # 0.1 K/mcL (0.0-0.2); Basophils % 0.6 %; Eosinophils # 0.1 K/mcL (0.0-0.6); Eosinophils % 0.6 %; Hematocrit 40.9 % (37.5-50.1); Hemoglobin 13.3 g/dL (12.9-16.9); Immature Granulocytes % 0.1 % (0-4); Lymphocytes # 0.5 K/mcL (0.6-4.6); Mean Corpuscular HGB Conc 32.5 g/dL (31.6-35.5); Mean Corpuscular Hemoglobin 27.8 pg (28.0-33.3); Mean Corpuscular Volume 85.6 fL (83.0-100.0); Mean Platelet Volume 9.5 fL (9.4-12.4); Monocytes # 0.5 K/mcL (0.0-1.3); Monocytes % 6.3 %; Neutrophils # 6.9 K/mcL (1.6-8.9); Platelet Count 284 K/mcL (140-400); Red Blood Count 4.78 M/mcL (4.19-5.50); Red Cell Distribution Width 14.6 % (11.5-14.5); Segmented Neutrophils % 86.4 %
[2021-10-09 21:49] LABS: INR 1.1
[2021-10-09 22:02] LABS: BUN/Creatinine Ratio 15 (6-26); Blood Urea Nitrogen 18 mg/dL (8-23); Carbon Dioxide 28 mEq/L (23-29); Chloride 102 mEq/L (98-107); Glucose 130 mg/dL (70-105); Osmolality,Calculated 290 (280-300); Sodium 138 mEq/L (136-145); Troponin I < 0.03 ng/mL (< 0.04); eGFR For African Americans > 60 (> 60); eGFR For Non-African Americans 59 (> 60)
[2021-10-09] MEDS ORDERED: Ipratropium/Albuterol Neb 3 ML IH ONE (22:02)
[2021-10-09] MEDS ORDERED: *HR* LORazepam 2 MG/ML VIAL IVP ONE (22:22)
[2021-10-09 22:40] LABS: Bacteria,Urine Few per hpf (None-Few); Bilirubin,Urine Negative (Negative); Blood,Urine Trace (Negative); Clarity,Urine Clear (Clear); Color,Urine Colorless (Yellow); Glucose,Urine (UA) Normal (Normal); Ketones,Urine Negative (Negative); Leukocyte Esterase,Urine Negative (Negative); Nitrite,Urine Negative (Negative); Protein,Urine 30 mg/dL (Neg-Trace); RBC,Urine 0-3 per hpf (0-3); Urobilinogen,Urine Normal (Normal); WBC,Urine 0-3 per hpf (0-3)
[2021-10-09] MEDS ORDERED: Azithromycin 500 MG in 0.9 % Sodium Chloride 250 ML IVPB ONE (23:04)
[2021-10-09] MEDS ORDERED: cefTRIAXone 1,000 MG in 0.9 % Sodium Chloride Mini Bag 100 ML IVPB ONE (23:04)
[2021-10-10] MEDS ORDERED: Naloxone 0.4 MG/ML INJ IVP PRN (00:03)
[2021-10-10 00:15] LABS: ABG Base Excess 0 mEq/L (-2 to 3); ABG HCO3 25 mEq/L (21-27); ABG Oxygen Saturation 99 % (95-98); ABG PCO2 42 mmHg (35-45); ABG PH 7.38 pH Units (7.32-7.45); ABG PO2 164 mmHg (85-104); ABG TCO2 26 mEq/L (20-26)
[2021-10-10] MEDS ORDERED: cefTRIAXone 1,000 MG in Water for inj. (sterile) 10 ML IVP ONE (00:34)
[2021-10-10] MEDS ORDERED: Vancomycin 1,750 MG/517.5 ML IV.SOLN IVPB ONE (01:00)
[2021-10-10] MEDS ORDERED: Gadolinium Contrast Agent (WT Based) IV PRN (02:01)
[2021-10-10 02:02] LABS: Influenza B PCR Negative (Negative); Resp. Syncytial Virus PCR Negative (Negative)
[2021-10-10 02:05] LABS: SARS-CoV-2 by PCR (In House) Negative (Negative)
[2021-10-10 02:06] LABS: Influenza A PCR Positive (Negative)
[2021-10-10] MEDS ORDERED: Dextrose 4 GM Chewable Tablets PO PRN ×2 (02:06)
[2021-10-10] MEDS ORDERED: *HR* Dextrose 50 % in Water (Syg) 50 ML SYRINGE IVP PRN (02:06)
[2021-10-10] MEDS ORDERED: D5% in Water 1,000 ML IVC PRN (02:06)
[2021-10-10 02:54] LABS: Basophils % 0.3 %; Eosinophils % 0.1 %; Hematocrit 41.8 % (37.5-50.1); Hemoglobin 13.6 g/dL (12.9-16.9); Immature Granulocytes % 0.3 % (0-4); Lymphocytes # 0.4 K/mcL (0.6-4.6); Lymphocytes % 3.4 %; Mean Corpuscular HGB Conc 32.5 g/dL (31.6-35.5); Mean Corpuscular Hemoglobin 27.6 pg (28.0-33.3); Mean Platelet Volume 9.5 fL (9.4-12.4); Monocytes # 0.8 K/mcL (0.0-1.3); Monocytes % 6.8 %; Neutrophils # 10.4 K/mcL (1.6-8.9); Platelet Count 274 K/mcL (140-400); Red Blood Count 4.92 M/mcL (4.19-5.50); Red Cell Distribution Width 14.6 % (11.5-14.5); Segmented Neutrophils % 89.1 %; White Blood Count 11.7 K/mcL (4.3-11.1)
[2021-10-10 03:10] LABS: BUN/Creatinine Ratio 16 (6-26); Blood Urea Nitrogen 19 mg/dL (8-23); Calcium 8.3 mg/dL (8.6-10.3); Carbon Dioxide 23 mEq/L (23-29); Chloride 105 mEq/L (98-107); Glucose 149 mg/dL (70-105); Osmolality,Calculated 291 (280-300); Potassium 3.9 mEq/L (3.5-5.1); Sodium 138 mEq/L (136-145); eGFR For African Americans > 60 (> 60); eGFR For Non-African Americans 59 (> 60)
[2021-10-10 03:14] LABS: Albumin 3.5 g/dL (3.5-5.7); Albumin/Globulin Ratio 1.3 (1.1-2.2); Bilirubin,Indirect 0.3 mg/dL (0.0-1.0); Bilirubin,Total 0.3 mg/dL (0.3-1.0); Globulin 2.6 g/dL (2.4-3.5); Total Protein 6.1 g/dL (6.4-8.9)
[2021-10-10] MEDS: Ipratropium/Albuterol Neb 3 ML IH SCH ×6 (03:46→23:48)
[2021-10-10] MEDS: Ampicillin 2,000 MG in 0.9 % Sodium Chloride Mini Bag 100 ML IVPB SCH ×6 (03:57→23:20)
[2021-10-10 04:46] LABS: Thyroid Stimulating Hormone 0.958 mcIU/mL (0.340-5.600)
[2021-10-10 04:54] LABS: Procalcitonin 1.83 ng/mL (0.00-0.15)
[2021-10-10] MEDS: Insulin LISPRO 300 UNITS/3 ML VIAL SUBQ SCH ×4 (05:41→23:16)
[2021-10-10] MEDS ORDERED: MethylPREDNISolone 40 MG/ML VIAL IVP SCH (08:00)
[2021-10-10] MEDS: D5 IVPB SCH ×3 (08:43→23:20)
[2021-10-10] MEDS: WATER IVPB SCH ×3 (08:43→23:20)
[2021-10-10] MEDS: ACYCLOVIR IVPB SCH ×3 (08:43→23:20)
[2021-10-10] MEDS ORDERED: Acetaminophen IV 1,000 MG/100 ML BAG IVPB ONE (10:50)
[2021-10-10] MEDS ORDERED: 0.9 % Sodium Chloride 1,000 ML IVC SCH (11:00)
[2021-10-10] MEDS ORDERED: Furosemide 20 MG TABLET PO PRN (11:35)
[2021-10-10] MEDS: cefTRIAXone 2,000 MG in 0.9 % Sodium Chloride 20 ML IVP SCH ×2 (12:34→23:20)
[2021-10-10] MEDS: Vancomycin 1,250 MG/262.5 ML IV.SOLN IVPB SCH (15:07)
[2021-10-10] MEDS: Cyanocobalamin (B-12) 1,000 MCG/ML VIAL IM ONE (15:56)
[2021-10-10] MEDS: carvediloL 25 MG TABLET PO SCH (17:25)
[2021-10-10] MEDS: Insulin DETEMIR 100 UNIT/ML X5UNITS SUBQ SCH (21:08)
[2021-10-11] MEDS: Vancomycin 1,250 MG/262.5 ML IV.SOLN IVPB SCH ×2 (02:12→16:08)
[2021-10-11] MEDS: Ampicillin 2,000 MG in 0.9 % Sodium Chloride Mini Bag 100 ML IVPB SCH ×5 (02:12→15:28)
[2021-10-11] MEDS: Ipratropium/Albuterol Neb 3 ML IH SCH ×6 (04:03→23:11)
[2021-10-11] MEDS: Insulin LISPRO 300 UNITS/3 ML VIAL SUBQ SCH ×4 (04:29→19:59)
[2021-10-11 04:50] LABS: Basophils % 0.1 %; Hemoglobin 12.4 g/dL (12.9-16.9); Immature Granulocytes % 0.5 % (0-4); Lymphocytes # 0.8 K/mcL (0.6-4.6); Lymphocytes % 8.9 %; Mean Corpuscular HGB Conc 32.6 g/dL (31.6-35.5); Mean Corpuscular Hemoglobin 28.2 pg (28.0-33.3); Mean Corpuscular Volume 86.4 fL (83.0-100.0); Mean Platelet Volume 10.2 fL (9.4-12.4); Monocytes # 0.6 K/mcL (0.0-1.3); Monocytes % 6.3 %; Neutrophils # 7.3 K/mcL (1.6-8.9); Platelet Count 237 K/mcL (140-400); Red Cell Distribution Width 14.6 % (11.5-14.5); Segmented Neutrophils % 84.2 %; White Blood Count 8.7 K/mcL (4.3-11.1)
[2021-10-11 05:29] LABS: Alanine Aminotransferase 7 Units/L (7-52); Albumin 3.2 g/dL (3.5-5.7); Albumin/Globulin Ratio 1.5 (1.1-2.2); Alkaline Phosphatase 67 Units/L (34-104); Aspartate Amino Transferase 13 Units/L (13-39); BUN/Creatinine Ratio 20 (6-26); Bilirubin,Total 0.2 mg/dL (0.3-1.0); Blood Urea Nitrogen 27 mg/dL (8-23); Calcium 7.8 mg/dL (8.6-10.3); Carbon Dioxide 25 mEq/L (23-29); Chloride 105 mEq/L (98-107); Globulin 2.2 g/dL (2.4-3.5); Glucose 135 mg/dL (70-105); Osmolality,Calculated 291 (280-300); Sodium 137 mEq/L (136-145); Total Protein 5.4 g/dL (6.4-8.9); eGFR For African Americans > 60 (> 60); eGFR For Non-African Americans 53 (> 60)
[2021-10-11] MEDS ORDERED: Cyanocobalamin (B-12) 1,000 MCG/ML VIAL IM ONE ×2 (08:32→11:45)
[2021-10-11] MEDS ORDERED: 0.9 % Sodium Chloride 500 ML ONE (08:50)
[2021-10-11] MEDS ORDERED: Spironolactone 25 MG TABLET PO SCH (09:00)
[2021-10-11] MEDS ORDERED: GADOBUTROL 30 MMOL/30 ML VIAL IVP ONE (09:58)
[2021-10-11] MEDS: cefTRIAXone 2,000 MG in 0.9 % Sodium Chloride 20 ML IVP SCH (11:31)
[2021-10-11] MEDS: ACYCLOVIR IVPB SCH ×2 (11:33→16:05)
[2021-10-11] MEDS: WATER IVPB SCH ×2 (11:33→16:05)
[2021-10-11] MEDS: D5 IVPB SCH ×2 (11:33→16:05)
[2021-10-11] MEDS: Cyanocobalamin (B-12) 1,000 MCG/ML VIAL IM ONE (11:44)
[2021-10-11] MEDS: carvediloL 25 MG TABLET PO SCH ×2 (11:45→15:30)
[2021-10-11] MEDS: Cyanocobalamin (B-12) 1,000 MCG TABLET PO SCH (11:46)
[2021-10-11] MEDS: Acetaminophen 325 MG TABLET PO PRN ×2 (14:13→19:59)
[2021-10-11] MEDS ORDERED: Vancomycin 1,250 MG/262.5 ML IV.SOLN IVPB SCH (15:00)
[2021-10-11] MEDS ORDERED: Vancomycin 1,500 MG/265 ML IV.SOLN IVPB SCH (15:00)
[2021-10-11 15:19] LABS: Appearance,CSF Clear (Clear); Red Blood Cell,CSF < 2000 RBC/mcL
[2021-10-11 15:42] LABS: Glucose,CSF 94 mg/dL (40-70); Total Protein,CSF 92 mg/dL (15-45)
[2021-10-11] MEDS: Insulin DETEMIR 100 UNIT/ML X5UNITS SUBQ SCH (20:00)
[2021-10-12] MEDS: Ipratropium/Albuterol Neb 3 ML IH SCH ×6 (04:05→23:42)
[2021-10-12 05:31] LABS: Basophils % 0.3 %; Eosinophils % 0.2 %; Hematocrit 40.3 % (37.5-50.1); Hemoglobin 12.8 g/dL (12.9-16.9); Immature Granulocytes % 0.2 % (0-4); Lymphocytes # 1.8 K/mcL (0.6-4.6); Lymphocytes % 19.7 %; Mean Corpuscular HGB Conc 31.8 g/dL (31.6-35.5); Mean Corpuscular Hemoglobin 27.4 pg (28.0-33.3); Mean Corpuscular Volume 86.3 fL (83.0-100.0); Mean Platelet Volume 10.3 fL (9.4-12.4); Monocytes # 0.7 K/mcL (0.0-1.3); Monocytes % 7.4 %; Neutrophils # 6.7 K/mcL (1.6-8.9); Platelet Count 254 K/mcL (140-400); Red Blood Count 4.67 M/mcL (4.19-5.50); Red Cell Distribution Width 14.9 % (11.5-14.5); Segmented Neutrophils % 72.2 %; White Blood Count 9.3 K/mcL (4.3-11.1)
[2021-10-12 06:05] LABS: Alanine Aminotransferase 8 Units/L (7-52); Albumin 3.3 g/dL (3.5-5.7); Albumin/Globulin Ratio 1.5 (1.1-2.2); Alkaline Phosphatase 65 Units/L (34-104); Aspartate Amino Transferase 16 Units/L (13-39); BUN/Creatinine Ratio 20 (6-26); Bilirubin,Total 0.3 mg/dL (0.3-1.0); Blood Urea Nitrogen 24 mg/dL (8-23); Carbon Dioxide 24 mEq/L (23-29); Chloride 106 mEq/L (98-107); Globulin 2.2 g/dL (2.4-3.5); Glucose 91 mg/dL (70-105); Osmolality,Calculated 296 (280-300); Potassium 3.8 mEq/L (3.5-5.1); Sodium 141 mEq/L (136-145); Total Protein 5.5 g/dL (6.4-8.9); eGFR For African Americans > 60 (> 60); eGFR For Non-African Americans > 60 (> 60)
[2021-10-12] MEDS: cefTRIAXone 1,000 MG in 0.9 % Sodium Chloride Mini Bag 100 ML IVPB SCH (09:01)
[2021-10-12] MEDS: Tolterodine LA (24 HR) 4 MG CAP.ER.24H PO SCH (09:13)
[2021-10-12] MEDS: Aspirin Enteric Coated 81 MG Tablet PO SCH (09:14)
[2021-10-12] MEDS: carvediloL 25 MG TABLET PO SCH ×2 (09:14→17:45)
[2021-10-12] MEDS: Cyanocobalamin (B-12) 1,000 MCG TABLET PO SCH (09:14)
[2021-10-12] MEDS: Insulin LISPRO 300 UNITS/3 ML VIAL SUBQ SCH ×4 (09:15→21:06)
[2021-10-12] MEDS: Acetaminophen 325 MG TABLET PO PRN ×2 (09:17→14:17)
[2021-10-12] MEDS: hydrALAZINE 25 MG TABLET PO SCH ×2 (14:17→23:52)
[2021-10-12] MEDS: Insulin DETEMIR 100 UNIT/ML X5UNITS SUBQ SCH (21:06)
[2021-10-13] MEDS: Ipratropium/Albuterol Neb 3 ML IH SCH ×6 (04:22→23:23)
[2021-10-13] MEDS: Insulin LISPRO 300 UNITS/3 ML VIAL SUBQ SCH ×4 (08:12→20:12)
[2021-10-13] MEDS: cefTRIAXone 1,000 MG in 0.9 % Sodium Chloride Mini Bag 100 ML IVPB SCH (08:25)
[2021-10-13] MEDS: Tolterodine LA (24 HR) 4 MG CAP.ER.24H PO SCH (08:26)
[2021-10-13] MEDS: hydrALAZINE 25 MG TABLET PO SCH ×2 (08:26→17:23)
[2021-10-13] MEDS: carvediloL 25 MG TABLET PO SCH ×2 (08:26→17:23)
[2021-10-13] MEDS: Aspirin Enteric Coated 81 MG Tablet PO SCH (08:26)
[2021-10-13] MEDS: Cyanocobalamin (B-12) 1,000 MCG TABLET PO SCH (08:27)
[2021-10-13] MEDS: Insulin DETEMIR 100 UNIT/ML X5UNITS SUBQ SCH (20:19)
[2021-10-14] MEDS: hydrALAZINE 25 MG TABLET PO SCH ×3 (00:15→15:57)
[2021-10-14] MEDS: Ipratropium/Albuterol Neb 3 ML IH SCH ×5 (04:03→20:01)
[2021-10-14] MEDS: Aspirin Enteric Coated 81 MG Tablet PO SCH (08:39)
[2021-10-14] MEDS: Tolterodine LA (24 HR) 4 MG CAP.ER.24H PO SCH (08:39)
[2021-10-14] MEDS: Cyanocobalamin (B-12) 1,000 MCG TABLET PO SCH (08:39)
[2021-10-14] MEDS: carvediloL 25 MG TABLET PO SCH ×2 (08:39→15:57)
[2021-10-14] MEDS: Insulin LISPRO 300 UNITS/3 ML VIAL SUBQ SCH ×4 (08:40→20:33)
[2021-10-14] MEDS: *HR* Heparin 5,000 UNIT/ML VIAL SQ SCH (17:29)
[2021-10-14] MEDS ORDERED: polyethylene glycoL 3350 17 GM POWD.PACK PO PRN (20:17)
[2021-10-14] MEDS: Insulin DETEMIR 100 UNIT/ML X5UNITS SUBQ SCH (20:34)
[2021-10-15] MEDS: Ipratropium/Albuterol Neb 3 ML IH SCH ×7 (00:16→23:21)
[2021-10-15] MEDS: hydrALAZINE 25 MG TABLET PO SCH ×3 (00:20→15:49)
[2021-10-15] MEDS: *HR* Heparin 5,000 UNIT/ML VIAL SQ SCH ×2 (05:19→17:09)
[2021-10-15] MEDS: Aspirin Enteric Coated 81 MG Tablet PO SCH (08:34)
[2021-10-15] MEDS: Insulin LISPRO 300 UNITS/3 ML VIAL SUBQ SCH ×4 (08:34→19:44)
[2021-10-15] MEDS: Cyanocobalamin (B-12) 1,000 MCG TABLET PO SCH (08:34)
[2021-10-15] MEDS: carvediloL 25 MG TABLET PO SCH ×2 (08:34→15:50)
[2021-10-15] MEDS: Tolterodine LA (24 HR) 4 MG CAP.ER.24H PO SCH (08:45)
[2021-10-15] MEDS: Insulin DETEMIR 100 UNIT/ML X5UNITS SUBQ SCH (19:45)
[2021-10-16] MEDS: hydrALAZINE 25 MG TABLET PO SCH ×3 (00:08→16:23)
[2021-10-16] MEDS: Ipratropium/Albuterol Neb 3 ML IH SCH ×5 (04:30→21:17)
[2021-10-16] MEDS: *HR* Heparin 5,000 UNIT/ML VIAL SQ SCH ×2 (05:09→16:24)
[2021-10-16] MEDS: Cyanocobalamin (B-12) 1,000 MCG TABLET PO SCH (07:51)
[2021-10-16] MEDS: Aspirin Enteric Coated 81 MG Tablet PO SCH (07:51)
[2021-10-16] MEDS: Insulin LISPRO 300 UNITS/3 ML VIAL SUBQ SCH ×4 (07:51→20:12)
[2021-10-16] MEDS: carvediloL 25 MG TABLET PO SCH ×2 (07:51→16:23)
[2021-10-16] MEDS: Tolterodine LA (24 HR) 4 MG CAP.ER.24H PO SCH (07:51)
[2021-10-17] MEDS: Ipratropium/Albuterol Neb 3 ML IH SCH ×5 (00:54→15:16)
[2021-10-17] MEDS: *HR* Heparin 5,000 UNIT/ML VIAL SQ SCH (05:22)
[2021-10-17] MEDS: Insulin LISPRO 300 UNITS/3 ML VIAL SUBQ SCH ×2 (07:06→11:10)
[2021-10-17] MEDS: Cyanocobalamin (B-12) 1,000 MCG TABLET PO SCH (08:03)
[2021-10-17] MEDS: Aspirin Enteric Coated 81 MG Tablet PO SCH (08:03)
[2021-10-17] MEDS: carvediloL 25 MG TABLET PO SCH ×2 (08:04→16:35)
[2021-10-17] MEDS: Tolterodine LA (24 HR) 4 MG CAP.ER.24H PO SCH (08:04)
[2021-10-17] MEDS: hydrALAZINE 25 MG TABLET PO SCH ×3 (08:07→15:41)
[2021-10-17 10:22] VITALS: TEMP 97.9
[2021-10-17 11:24] VITALS: O2SAT 92
[2021-10-17 14:02] LABS: HSV Source CSF
[2021-10-17 15:45] VITALS: PULSE 74
[2021-10-17 16:35] VITALS: BP 125/59
== END 2021-10-17 16:52 | DRG 871 ==
LOC: EMEROOARM 20:43 → 2NENU 10-10 00:31 → SUATTDRO 10-10 00:31 → 2NENU 10-10 01:51
PROVIDERS: ADMIT Internal Medicine; ATTEND Internal Medicine
PROC: IRLUMPX (2021-10-11 12:00)

== ENCOUNTER 2022-02-15 18:59 | Inpatient (IN) ==
[2022-02-15] MEDS ORDERED: Iopamidol - 370 500 ML MLS IVP ONE (19:55)
[2022-02-15 20:16] LABS: Basophils # 0.1 K/mcL (0.0-0.2); Basophils % 0.6 %; Eosinophils # 0.2 K/mcL (0.0-0.6); Eosinophils % 1.7 %; Hemoglobin 11.7 g/dL (12.9-16.9); Immature Granulocytes % 0.5 % (0-4); Lymphocytes # 1.7 K/mcL (0.6-4.6); Lymphocytes % 14.8 %; Mean Corpuscular HGB Conc 32.5 g/dL (31.6-35.5); Mean Corpuscular Hemoglobin 29.8 pg (28.0-33.3); Mean Corpuscular Volume 91.8 fL (83.0-100.0); Mean Platelet Volume 9.2 fL (9.4-12.4); Monocytes # 1.2 K/mcL (0.0-1.3); Monocytes % 10.2 %; Neutrophils # 8.1 K/mcL (1.6-8.9); Platelet Count 360 K/mcL (140-400); Red Blood Count 3.92 M/mcL (4.19-5.50); Red Cell Distribution Width 12.7 % (11.5-14.5); Segmented Neutrophils % 72.2 %; White Blood Count 11.3 K/mcL (4.3-11.1)
[2022-02-15 20:33] LABS: Albumin/Globulin Ratio 1.2 (1.1-2.2); Bilirubin,Total 0.4 mg/dL (0.3-1.0); Calcium 9.3 mg/dL (8.6-10.3); Globulin 3.3 g/dL (2.4-3.5); Total Protein 7.3 g/dL (6.4-8.9)
[2022-02-15] MEDS ORDERED: Piperacillin/Tazobactam 3.375 GM in 0.9 % Sodium Chloride Mini Bag 100 ML IVPB ONE (22:07)
[2022-02-15] MEDS ORDERED: Vancomycin 1,250 MG/262.5 ML IV.SOLN IVPB ONE (22:08)
[2022-02-15] MEDS ORDERED: Lidocaine -MPF 1% 2 ML VIAL ID ONE (22:08)
[2022-02-15] MEDS ORDERED: Ondansetron ODT 4 MG TAB.RAPDIS SL PRN (23:37)
[2022-02-15] MEDS ORDERED: Naloxone 0.4 MG/ML INJ IVP PRN (23:37)
[2022-02-15] MEDS ORDERED: D5% in Water 1,000 ML IVC PRN (23:41)
[2022-02-15] MEDS ORDERED: Dextrose Gel 15 GM/37.5 ML TUBE PO PRN ×2 (23:41)
[2022-02-15] MEDS ORDERED: *HR* Dextrose 50 % in Water (Syg) 50 ML SYRINGE IVP PRN (23:41)
[2022-02-16] MEDS ORDERED: MetroNIDAZOLE 500 MG/100 ML 500 MG/100 ML BAG IVPB SCH
[2022-02-16] MEDS ORDERED: Albumin 25% 25gram/100mL 25 GM/100 ML IV.SOLN IVPB ONE (00:15)
[2022-02-16] MEDS ORDERED: Furosemide 40 MG/4 ML VIAL IVP ONE (01:00)
[2022-02-16] MEDS: Ringers Solution, Lactated 1,000 ML IVC SCH (01:35)
[2022-02-16] MEDS: Cefepime HCl 2,000 MG in 0.9 % Sodium Chloride Mini Bag 100 ML IVPB SCH ×2 (01:36→07:59)
[2022-02-16 01:57] LABS: Basophils # 0.1 K/mcL (0.0-0.2); Basophils % 0.6 %; Eosinophils # 0.2 K/mcL (0.0-0.6); Hematocrit 33.5 % (37.5-50.1); Hemoglobin 10.9 g/dL (12.9-16.9); Immature Granulocytes % 0.4 % (0-4); Lymphocytes # 1.9 K/mcL (0.6-4.6); Lymphocytes % 16.7 %; Mean Corpuscular HGB Conc 32.5 g/dL (31.6-35.5); Mean Corpuscular Hemoglobin 29.9 pg (28.0-33.3); Mean Platelet Volume 9.4 fL (9.4-12.4); Monocytes # 0.9 K/mcL (0.0-1.3); Monocytes % 8.4 %; Platelet Count 325 K/mcL (140-400); Red Blood Count 3.64 M/mcL (4.19-5.50); Red Cell Distribution Width 12.5 % (11.5-14.5); Segmented Neutrophils % 71.9 %; White Blood Count 11.2 K/mcL (4.3-11.1)
[2022-02-16] MEDS: Insulin LISPRO 300 UNITS/3 ML VIAL SUBQ SCH ×4 (02:08→18:00)
[2022-02-16 02:10] LABS: % Iron Saturation 10 % (20-55); Iron 29 mcg/dL (65-175); Transferrin 211 mg/dL (203-362)
[2022-02-16 02:10] LABS: Alanine Aminotransferase 5 Units/L (7-52); Albumin 3.5 g/dL (3.5-5.7); Albumin/Globulin Ratio 1.3 (1.1-2.2); Alkaline Phosphatase 70 Units/L (34-104); Aspartate Amino Transferase 8 Units/L (13-39); BUN/Creatinine Ratio 18 (6-26); Bilirubin,Total 0.4 mg/dL (0.3-1.0); Blood Urea Nitrogen 24 mg/dL (8-23); Calcium 8.8 mg/dL (8.6-10.3); Carbon Dioxide 22 mEq/L (23-29); Chloride 106 mEq/L (98-107); Globulin 2.8 g/dL (2.4-3.5); Glucose 101 mg/dL (70-105); Magnesium 1.5 mg/dL (1.6-2.6); Osmolality,Calculated 290 (280-300); Sodium 138 mEq/L (136-145); Total Protein 6.3 g/dL (6.4-8.9); eGFR For African Americans > 60 (> 60); eGFR For Non-African Americans 53 (> 60)
[2022-02-16] MEDS: MetroNIDAZOLE 500 MG/100 ML 500 MG/100 ML BAG IVPB SCH ×2 (02:27→11:37)
[2022-02-16 04:04] LABS: Ferritin 69 ng/mL (20-250)
[2022-02-16] MEDS ORDERED: *HR* Heparin 5,000 UNIT/ML VIAL SQ SCH (06:00)
[2022-02-16] MEDS: Lactobacillus 1 EACH CAP.SPRINK PO SCH ×2 (07:59→20:24)
[2022-02-16] MEDS: Vancomycin 1,500 MG/265 ML IV.SOLN IVPB SCH (12:37)
[2022-02-16] MEDS: hydrALAZINE 25 MG TABLET PO SCH (15:12)
[2022-02-16] MEDS: carvediloL 25 MG TABLET PO SCH (16:30)
[2022-02-16] MEDS: Piperacillin/Tazobactam 3.375 GM in 0.9 % Sodium Chloride Mini Bag 100 ML IVPB SCH (16:31)
[2022-02-16] MEDS ORDERED: Acetaminophen 325 MG TABLET PO PRN (16:57)
[2022-02-17] MEDS: Piperacillin/Tazobactam 3.375 GM in 0.9 % Sodium Chloride Mini Bag 100 ML IVPB SCH ×3 (01:04→16:26)
[2022-02-17] MEDS: hydrALAZINE 25 MG TABLET PO SCH ×3 (01:04→16:26)
[2022-02-17 01:47] LABS: Bilirubin,Urine Negative (Negative); Blood,Urine Negative (Negative); Clarity,Urine Clear (Clear); Color,Urine Light-Yellow (Yellow); Glucose,Urine (UA) Normal (Normal); Ketones,Urine Negative (Negative); Leukocyte Esterase,Urine Negative (Negative); Nitrite,Urine Negative (Negative); PH,Urine 6.5 pH Units (5.0-8.0); Protein,Urine Trace mg/dL (Neg-Trace); Specific Gravity,Urine 1.016 (1.010-1.025); Urobilinogen,Urine Normal (Normal)
[2022-02-17] MEDS: Insulin LISPRO 300 UNITS/3 ML VIAL SUBQ SCH ×4 (02:31→18:36)
[2022-02-17] MEDS: Ringers Solution, Lactated 1,000 ML IVC SCH (02:41)
[2022-02-17] MEDS: *HR* Enoxaparin 40 MG/0.4 ML SYRINGE SQ SCH (06:01)
[2022-02-17] MEDS: carvediloL 25 MG TABLET PO SCH ×2 (08:49→16:26)
[2022-02-17] MEDS: Aspirin Enteric Coated 81 MG Tablet PO SCH (08:49)
[2022-02-17] MEDS: Furosemide 20 MG TABLET PO SCH (08:49)
[2022-02-17] MEDS: Lactobacillus 1 EACH CAP.SPRINK PO SCH ×2 (08:50→20:55)
[2022-02-17 13:36] LABS: Hematocrit 34.9 % (37.5-50.1); Hemoglobin 11.6 g/dL (12.9-16.9); Mean Corpuscular HGB Conc 33.2 g/dL (31.6-35.5); Mean Corpuscular Hemoglobin 29.8 pg (28.0-33.3); Mean Corpuscular Volume 89.7 fL (83.0-100.0); Mean Platelet Volume 9.3 fL (9.4-12.4); Platelet Count 359 K/mcL (140-400); Red Blood Count 3.89 M/mcL (4.19-5.50); Red Cell Distribution Width 12.4 % (11.5-14.5); White Blood Count 8.7 K/mcL (4.3-11.1)
[2022-02-17 13:50] LABS: BUN/Creatinine Ratio 15 (6-26); Blood Urea Nitrogen 15 mg/dL (8-23); Calcium 8.9 mg/dL (8.6-10.3); Carbon Dioxide 24 mEq/L (23-29); Chloride 103 mEq/L (98-107); Glucose 139 mg/dL (70-105); Osmolality,Calculated 287 (280-300); Potassium 3.7 mEq/L (3.5-5.1); Sodium 137 mEq/L (136-145); eGFR For African Americans > 60 (> 60); eGFR For Non-African Americans > 60 (> 60)
[2022-02-17] MEDS ORDERED: Vancomycin 1,750 MG/517.5 ML IV.SOLN IVPB SCH (14:00)
[2022-02-17] MEDS: Vancomycin 1,500 MG/265 ML IV.SOLN IVPB SCH (19:54)
[2022-02-18] MEDS: hydrALAZINE 25 MG TABLET PO SCH ×2 (00:05→08:38)
[2022-02-18] MEDS: Insulin LISPRO 300 UNITS/3 ML VIAL SUBQ SCH (00:05)
[2022-02-18] MEDS: Piperacillin/Tazobactam 3.375 GM in 0.9 % Sodium Chloride Mini Bag 100 ML IVPB SCH (00:06)
[2022-02-18] MEDS: *HR* Enoxaparin 40 MG/0.4 ML SYRINGE SQ SCH (04:01)
[2022-02-18 07:06] VITALS: BP 158/65; PULSE 70; TEMP 98; O2SAT 91
[2022-02-18] MEDS ORDERED: Insulin LISPRO 300 UNITS/3 ML VIAL SUBQ SCH (08:00)
[2022-02-18] MEDS: Furosemide 20 MG TABLET PO SCH (08:38)
[2022-02-18] MEDS: carvediloL 25 MG TABLET PO SCH (08:38)
[2022-02-18] MEDS: Aspirin Enteric Coated 81 MG Tablet PO SCH (08:38)
[2022-02-18] MEDS: Lactobacillus 1 EACH CAP.SPRINK PO SCH (08:39)
== END 2022-02-18 11:08 | disposition home health service (06) | DRG 348 ==
LOC: 3ANU 18:59 → EMEROOARM 18:59 → SUATTDRO 22:34 → 3ANU 02-16 00:34
PROVIDERS: ADMIT Internal Medicine; ATTEND Internal Medicine